=== PATIENT | female | born 1960 | race Caucasian/White ===

== ENCOUNTER 2019-12-07 07:18 | Day surgery (SDC) | payer OTHER ==
[~2019-12-07] VITALS: Ht 160 cm; Wt 88.0 kg
[2019-12-07] MEDS ORDERED: MIDAZOLAM 2 MG/2 ML VIAL ONE (08:11)
[2019-12-07] MEDS ORDERED: LIDOCAINE 2% 100 MG/5 ML UJET TP ONE (08:11)
[2019-12-07] MEDS ORDERED: fentaNYL 0.05 MG/ML VIAL ONE (08:11)
[2019-12-07] MEDS ORDERED: MIDAZOLAM 2 MG/2 ML VIAL IVP ONE (08:18)
[2019-12-07] MEDS ORDERED: fentaNYL 0.05 MG/ML VIAL IVP ONE (08:20)
== END 2019-12-07 09:35 | disposition home or self-care (01) ==
LOC: MDS 07:18 → MMU 07:19 → MDS 09:35
PROVIDERS: ATTEND Internal Medicine Gastroenterology
DX: Z12.11 Encounter for screening for malignant neoplasm of colon (principal); D12.2 Benign neoplasm of ascending colon; D12.5 Benign neoplasm of sigmoid colon; D12.8 Benign neoplasm of rectum; K29.70 Gastritis, unspecified, without bleeding; K21.9 Gastro-esophageal reflux disease without esophagitis; J45.909 Unspecified asthma, uncomplicated; Z98.890 Other specified postprocedural states
CPT/HCPCS: 36415; 43239; 45385; 86677; J2250; J3010

== ENCOUNTER 2023-01-07 06:19 | Day surgery (SDC) | payer OTHER ==
[~2023-01-07] VITALS: Ht 160 cm; Wt 90.7 kg
[2023-01-07] MEDS ORDERED: fentaNYL citrate 0.05 MG/ML VIAL ONE (07:14)
[2023-01-07] MEDS ORDERED: LIDOCAINE 2% 100 MG/5 ML UJET TP ONE (07:14)
[2023-01-07] MEDS ORDERED: fentaNYL citrate 0.05 MG/ML VIAL IVP ONE (08:30)
== END 2023-01-07 09:00 | disposition home or self-care (01) ==
LOC: MDS 06:19 → MMU 06:20 → MDS 08:39
PROVIDERS: ATTEND Internal Medicine Gastroenterology
DX: Z12.11 Encounter for screening for malignant neoplasm of colon (principal); K63.5 Polyp of colon; K57.30 Diverticulosis of large intestine without perforation or abscess without bleeding; Z86.010 Personal history of colon polyps; J45.909 Unspecified asthma, uncomplicated; K21.9 Gastro-esophageal reflux disease without esophagitis; Z90.49 Acquired absence of other specified parts of digestive tract; Z79.899 Other long term (current) drug therapy; Z20.822 Contact with and (suspected) exposure to COVID-19
CPT/HCPCS: 45385; 87426; J3010